=== PATIENT | female | born 1980 | race Caucasian/White ===

== ENCOUNTER 2018-05-21 13:01 | Emergency (ER) | payer OTHER, SELFPAY ==
[2018-05-21] MEDS: NORCO, ANEXSIA 5/325MG TABLET (HYDROcodone/ACETAMINOPHEN) PO (13:58)
[2018-05-21] MEDS: ONDANSETRON 4 MG ORAL DISINTEGRATING TAB (Q0162 PER 1MG) PO (13:58)
== END 2018-05-21 15:48 | disposition home or self-care (01) ==
LOC: M ED 13:01
DX: S06.0X0A Concussion without loss of consciousness, initial encounter (principal); S00.81XA Abrasion of other part of head, initial encounter; V86.55XA Driver of 3- or 4- wheeled all-terrain vehicle (ATV) injured in nontraffic accident, initial encounter; Y92.89 Other specified places as the place of occurrence of the external cause; Z88.8 Allergy status to other drugs, medicaments and biological substances; Z79.899 Other long term (current) drug therapy
CPT/HCPCS: Q0162

== ENCOUNTER → 2019-05-02 | Outpatient (REF) | payer OTHER ==
[~2019-05-02] MED LIST: ANTIDEPRESANT; NORC1TAB7 PO; ONDA4TAB6 PO
== END ==
LOC: M LAB REF 12:11
PROVIDERS: ATTEND Obstetrics & Gynecology
DX: Z34.82 Encounter for supervision of other normal pregnancy, second trimester (principal)

== ENCOUNTER → 2019-07-28 | Outpatient (CLI) | payer OTHER ==
[2019-07-28 13:31] LABS: HEMATOCRIT 29.6 % (36.0-47.0); MEAN CORPUSCULAR HEMOGLOBIN 30.8 pg (27.0-33.0); MEAN CORPUSCULAR HGB CONC 33.8 g/dl (32.0-36.5); MEAN CORPUSCULAR VOLUME 91.1 fl (80.0-96.0); PLATELET COUNT, AUTOMATED 269 10^3/uL (150-450); RED BLOOD COUNT 3.25 10^6/uL (4.00-5.40); WHITE BLOOD COUNT 11.1 10^3/uL (4.0-10.0)
== END ==
LOC: M LAB 11:28
PROVIDERS: ATTEND Obstetrics & Gynecology
DX: O34.82 Maternal care for other abnormalities of pelvic organs, second trimester (principal); Z3A.00 Weeks of gestation of pregnancy not specified
CPT/HCPCS: 82950; 85027; 86850; 86901; J2790

== ENCOUNTER → 2019-09-26 | Outpatient (REF) | payer OTHER | LOC: M LAB REF 12:23 | PROVIDERS: ATTEND Nurse Practitioner Women's Health | DX: Z34.83 Encounter for supervision of other normal pregnancy, third trimester (principal) ==

== ENCOUNTER → 2019-10-13 | Outpatient (REF) | payer OTHER | LOC: M LAB REF 12:11 | PROVIDERS: ATTEND Nurse Practitioner Family | DX: J02.9 Acute pharyngitis, unspecified (principal) ==

== ENCOUNTER 2019-10-17 04:19 | Inpatient (IN) | payer OTHER ==
[~2019-10-17] VITALS: Ht 154.9 cm; Wt 71.6 kg
[2019-10-17] VITALS (42 sets, daily range): BP systolic 96–137; BP diastolic 55–104
[2019-10-17] MEDS ORDERED: PRENTAB9 PO (05:11)
[2019-10-17] MEDS ORDERED: AMOX875T PO (05:11)
[2019-10-17] MEDS ORDERED: FOLITAB11 PO (05:11)
[2019-10-17] MEDS ORDERED: BUTORPHANOL 2 MG/ML INJ (J0595) As Ordered ONE (06:50)
[2019-10-17] MEDS ORDERED: PROMETHAZINE INJ 25 MG/ML VIAL (J2550) As Ordered ONE (06:52)
[2019-10-17] MEDS ORDERED: BUTORPHANOL 2 MG/ML INJ (J0595) IV ONE ×2 (07:00→09:00)
[2019-10-17] MEDS ORDERED: PROMETHAZINE INJ 25 MG/ML VIAL (J2550) IV PRN (07:00)
[2019-10-17 07:08] LABS: HEMATOCRIT 25.9 % (36.0-47.0); MEAN CORPUSCULAR HEMOGLOBIN 23.3 pg (27.0-33.0); MEAN CORPUSCULAR HGB CONC 30.9 g/dl (32.0-36.5); MEAN CORPUSCULAR VOLUME 75.3 fl (80.0-96.0); PLATELET COUNT, AUTOMATED 349 10^3/uL (150-450); RED BLOOD COUNT 3.44 10^6/uL (4.00-5.40)
[2019-10-17] MEDS ORDERED: OXYTOCIN DRIP 30 UNITS in IV 1 EA IV SCH (09:45)
--- NOTE | 2019-10-17 09:53 | HPE ---
DATE OF ADMISSION: 10/17/2019 REASON FOR ADMISSION: Spontaneous rupture of membranes. HISTORY OF PRESENT ILLNESS: This patient is a 39-year-old 3, para 2 who presented at 39 weeks 4 days estimated gestational age with complaints of leakage of fluid. She reported approximately 3:30 this morning a gush of fluid followed by some contractions. She denies any vaginal bleeding, reports active movement. Her course has been unremarkable. She receives her care at [facility]. She has been followed in her first trimester and has had appropriate appointments. PAST MEDICAL HISTORY: None. PAST SURGICAL HISTORY: None. PAST OBSTETRICAL HISTORY: She is 3, para 1. She has had one term delivery, vaginal, uncomplicated, proven to 8 pounds 15 ounces. MEDICATIONS: Her medications include amoxicillin for an ear infection. ALLERGIES: She has no known drug allergies.. SOCIAL HISTORY: She denies any alcohol, tobacco or drug use during . PHYSICAL EXAMINATION: Vital signs: Stable. She is afebrile. She has category one rate tracing with heart rate 130s. General appearance: Well appearing, no acute distress. Lungs: Clear to auscultation bilaterally. Cardiovascular: Heart regular rate and rhythm. Her abdomen is gravid, nontender. Estimated weight 3700 grams. Cervical Exam: She was 3 cm dilated, 80% effaced -2 station. LABS: Blood type is O negative, antibody screen is negative. Rubella is immune. RPR is nonreactive. Hepatitis surface antigen is negative. HIV is negative. Hepatitis C is nonreactive. She had a negative GBS. ASSESSMENT: 1. This patient is a 39-year-old 3, para 1 at 39 weeks 4 days estimated gestational age in active labor. 2. Reassuring status. PLAN: Admit to labor and delivery, CBC, RPR, type and screen. Patient requesting for IV pain medication. Anticipate spontaneous vaginal delivery.
[2019-10-17 10:01] LABS: HIV 1&2 SCREEN CENTAUR NEGATIVE (NEGATIVE)
[2019-10-17] MEDS ORDERED: FENTANYL 2MCG/ML ROPIVACAINE 0.2% IN 0.9% NACL 100ML IVBAG As Ordered ONE (10:16)
--- NOTE | 2019-10-17 11:27 | IPNPDOC ---
Text Note Date of Service The patient was seen on 10/17/19. NOTE Comfortable with epidural UC Q 2-4 minutes with coupling Pitocin @ 2mu FH 130, Cat I SVE 4/80/-1, anterior rim is slightly swollen. Fluid remains clear. Continue pitocin augmentation of labor VS,Fishbone, I+O VS, Fishbone, I+O Laboratory Tests 10/17/19 06:40 Vital Signs Date Time Temp Pulse Resp B/P (MAP) Pulse Ox O2 Delivery O2 Flow Rate FiO2 10/17/19 10:50 20 10/17/19 06:00 78 114/65 (81) 10/17/19 04:50 98.4 Yaritza Borden CNM Oct 17, 2019 11:27
[2019-10-17] MEDS ORDERED: EPIDURAL COMMENT XX SCH (11:45)
[2019-10-17] MEDS ORDERED: EPIDURAL/PCA KEYS XX PRN (11:45)
[2019-10-17] MEDS ORDERED: diphenhydrAMINE INJ 50MG/ML VIAL (J1200) IV PRN (11:45)
[2019-10-17] MEDS ORDERED: ePHEDrine SULFATE 25 MG/5 ML(5MG/ML) SYRINGE IV PRN (11:45)
[2019-10-17] MEDS ORDERED: REFRIGERATOR IV KEYS XX PRN (11:45)
[2019-10-17] MEDS ORDERED: ONDANSETRON 4MG/2ML VIAL (J2405) IV PRN (11:45)
[2019-10-17] MEDS ORDERED: LACTATED RINGER'S 1000 ML IV PRN (11:45)
[2019-10-17] MEDS: FENTANYL/ROPIVACAINE/NACL BAG 100 ML EPIDURAL SCH ×2 (11:45→17:41)
[2019-10-17] MEDS ORDERED: NALOXONE INJ 0.4 MG/1 ML VIAL (J2310) IV PRN (11:45)
[2019-10-17] MEDS ORDERED: CALCIUM CARBONATE 500 MG CHEW U/D PO PRN (13:00)
--- NOTE | 2019-10-17 14:45 | IPNPDOC ---
Text Note Date of Service The patient was seen on 10/17/19. NOTE Progress note Reports feeling Left back and pelvic pressure Pitocin @ 4mu FH 150, Minimal/moderate variability, sporadic variable decels UC Q minutes SVE 5-6/90/-1, anterior lip remains swollen. Bloody show and clear fluid noted. Rec peanut ball, reassess. Consider epidural bolus VS,Fishbone, I+O VS, Fishbone, I+O Laboratory Tests 10/17/19 06:40 Vital Signs Date Time Temp Pulse Resp B/P (MAP) Pulse Ox O2 Delivery O2 Flow Rate FiO2 10/17/19 11:59 93 105/59 (74) 10/17/19 11:10 20 10/17/19 11:10 96.3 Yaritza Borden CNM Oct 17, 2019 14:45
[2019-10-17] MEDS ORDERED: BICITRA 30ML SOLN UDC PO ONE (15:00)
[2019-10-17] MEDS: LR 1,000 ML IV SCH ×2 (15:33→17:01)
--- NOTE | 2019-10-17 17:04 | IPNPDOC ---
Text Note Date of Service The patient was seen on 10/17/19. NOTE Remains comfortable with epidural Mild tachycardia 160's - 170's, minimal variability. Maternal temp 100.2, output since epidural only 250ml, concentrated. UC 3-4 minutes x 60 seconds SVE 7-8/90/-1, fluid remains clear IV bolus, tylenol. Reassess VS,Fishbone, I+O VS, Fishbone, I+O Laboratory Tests 10/17/19 06:40 Vital Signs Date Time Temp Pulse Resp B/P (MAP) Pulse Ox O2 Delivery O2 Flow Rate FiO2 10/17/19 16:02 100.2 20 10/17/19 15:44 77 132/64 (86) Yaritza Borden CNM Oct 17, 2019 17:04
[2019-10-17] MEDS: ACETAMINOPHEN 500 MG TAB PO PRN ×2 (17:08→17:43)
[2019-10-17 17:34] LABS: HEMATOCRIT 28.5 % (36.0-47.0); HEMOGLOBIN 8.6 g/dl (12.0-15.5); MEAN CORPUSCULAR HEMOGLOBIN 23.5 pg (27.0-33.0); MEAN CORPUSCULAR HGB CONC 30.2 g/dl (32.0-36.5); MEAN CORPUSCULAR VOLUME 77.9 fl (80.0-96.0); PLATELET COUNT, AUTOMATED 373 10^3/uL (150-450); RED BLOOD COUNT 3.66 10^6/uL (4.00-5.40); WHITE BLOOD COUNT 20.6 10^3/uL (4.0-10.0)
[2019-10-17] MEDS ORDERED: AMPICILLIN SOD/SULBACTAM SOD 3 GM in D5W MINI-BAG PLUS 100 ML IV ONE (18:00)
[2019-10-17 20:54] LABS: CORD GAS ABE A -13.4; CORD GAS ABE V -8.5; CORD GAS HCO3 A 18.1 MEQ/L; CORD GAS HCO3 V 17.3 MEQ/L; CORD GAS O2 SAT V 74.6 %; CORD GAS PCO2 V 37.3 mmHg; CORD GAS PH A 7.07 UNITS; CORD GAS PH V 7.283 UNITS; CORD GAS PO2 A 49.4 mmHg; CORD GAS PO2 V 33.9 mmHg; CORD GAS SBC A 14.3 MEQ/L; CORD GAS SBC V 17.3 MEQ/L; CORD GAS TCO2 A 20.1 MEQ/L; CORD GAS TCO2 V 18.4 MEQ/L
[2019-10-17] MEDS ORDERED: DIBUCAINE 1% OINTMENT 30GM TOP PRN (21:00)
[2019-10-17] MEDS ORDERED: DOCUSATE SODIUM 100 MG CAP PO PRN (21:00)
[2019-10-17] MEDS ORDERED: IBUPROFEN 800 MG TAB PO PRN (21:00)
[2019-10-17] MEDS ORDERED: ACETAMINOPHEN 500 MG TAB PO PRN (21:00)
[2019-10-17] MEDS ORDERED: MOM 30ML SUSPENSION UDC PO PRN (21:00)
[2019-10-17] MEDS ORDERED: MEASLES,MUMPS,RUBELLA VACCINE INJ (MMR-II) (90707) SC SCH (21:00)
[2019-10-17] MEDS ORDERED: IBUPROFEN 600 MG TAB PO PRN (21:00)
[2019-10-17] MEDS ORDERED: ANUSOL HC CREAM 30GM TOP PRN (21:00)
[2019-10-17] MEDS ORDERED: METHYLERGONOVINE MALEATE 0.2 MG TAB PO PRN (21:00)
[2019-10-17] MEDS ORDERED: RHOGAM 300 MCG (1500 IU) INJ (J2790) IM SCH (21:00)
[2019-10-17] MEDS ORDERED: ACETAMINOPHEN TAB 650MG DOSE (2X325MG) PO PRN (21:00)
--- NOTE | 2019-10-17 21:01 | DNPDOC ---
[facility] Delivery Note Delivery Note DATE OF DELIVERY: 10/17/19 PREDELIVERY DIAGNOSIS: 39+3/7 weeks' gestation and labor. POST DELIVERY DIAGNOSIS: Delivered. Chorioamnionitis PROCEDURE: Spontaneous vaginal delivery. Provider: Yaritza Borden CNM ANESTHESIA: Epidural. ESTIMATED BLOOD LOSS: 400 mL. FINDINGS: 8 pound 3 ounce, 3680gm female infant, Score 7/9, nuchal cord times 1, reduced prior to delivery. DELIVERY SUMMARY: Patient is a 39-year-old 3 now para 2-0-1-2 who was admitted to labor and delivery for SROM clear fluid 0130. She received pitocin augmentation and utilized an epidural for labor coping. Diagnosed chorioamnionitis with maternal fever max 101.2, tachycardia to 170's and elevated WBC count. Treated with Unasyn 3gm x 1. NICU alerted. FD 1858. Viable female delivered ELLIOTT, restituted to ROP after reduction of loose nuchal cord @ 2008. Spontaneous respirations, transitioned on maternal abdomen. Cord doubly clamped; cut by FOB under my direction once pulsations ceased. Apgars 7/9. Cord gases obtained, results pending. Placenta chacko, intact with 3v cord @ 2020. Bilobed placenta with velamentous cord insertion between the lobes noted. Fundus firmed with massage and IV pitocin bolus. EBL 400ml. Cervix, vagina and perineum inspected. 1st degree perineal laceration repaired with 3-0 vicryl rapide. Sponge, sharp and instrument count correct at close of procedure. Parents are naming their daughter Chelsea. Yaritza Borden CNM Oct 17, 2019 21:01
[2019-10-18] VITALS: BP 110/59
[2019-10-18 05:58] VITALS: BP 114/63
[2019-10-18] MEDS: AMOXICILLIN 875 MG TAB PO SCH ×2 (09:12→21:05)
[2019-10-18] MEDS: PRENATAL VITAMINS CHEWABLE TABLET PO SCH (09:13)
[2019-10-18] MEDS ORDERED: ADACEL/BOOSTRIX VACCINE (DIPHTH/PERTUSS/ACELL/TETANUS)0.5ML SYR (90715) IM ONE (18:00)
[2019-10-18 18:04] VITALS: BP 127/74
[2019-10-19 06:00] VITALS: BP 129/73
[2019-10-19] MEDS: AMOXICILLIN 875 MG TAB PO SCH (09:00)
[2019-10-19] MEDS: PRENATAL VITAMINS CHEWABLE TABLET PO SCH (09:09)
== END 2019-10-19 12:05 | disposition home or self-care (01) | DRG 807 ==
LOC: M LDO 04:19 → M LDI 05:36 → M OBS 23:41
PROVIDERS: ADMIT Obstetrics & Gynecology; ATTEND Advanced Practice Midwife
PROC: 10E0XZZ Delivery of Products of Conception, External Approach (ICD-10-PCS; principal; 2019-10-17)
PROC: 0HQ9XZZ Repair Perineum Skin, External Approach (ICD-10-PCS; 2019-10-17)
DX: O41.1230 Chorioamnionitis, third trimester, not applicable or unspecified (principal); Z37.0 Single live birth; Z3A.39 39 weeks gestation of pregnancy; O69.81X0 Labor and delivery complicated by cord around neck, without compression, not applicable or unspecified; O70.0 First degree perineal laceration during delivery

== ENCOUNTER → 2021-05-10 | Outpatient (REF) | payer OTHER ==
[~2021-05-10] MED LIST changes: +AMOX875T PO; +FOLITAB11 PO; +PRENTAB9 PO
[2021-05-10 14:12] LABS: ALBUMIN 3.9 GM/DL (3.2-5.2); ALT/SGPT 41 U/L (12-78); BLOOD UREA NITROGEN 12 MG/DL (7-18); CALCIUM LEVEL 8.9 MG/DL (8.5-10.1); CARBON DIOXIDE LEVEL 27 MEQ/L (21-32); CHLORIDE LEVEL 109 MEQ/L (98-107); CHOLESTEROL LEVEL 152 MG/DL (<200); CHOLESTEROL RISK RATIO 2.714 (<5); CREATININE FOR GFR 0.62 MG/DL (0.55-1.30); GLOMERULAR FILTRATION RATE > 60.0 (>60); GLUCOSE, FASTING 95 MG/DL (70-100); HDL CHOLESTEROL 56 MG/DL (>40); LDL CHOLESTEROL 86 MG/DL (<100); NON-HDL-C 96 MG/DL; POTASSIUM SERUM 4.1 MEQ/L (3.5-5.1); SODIUM LEVEL 141 MEQ/L (136-145); TOTAL PROTEIN 7.3 GM/DL (6.4-8.2); TRIGLYCERIDES LEVEL 49 MG/DL (<150)
== END ==
LOC: M SFHCPLAZ 11:15
PROVIDERS: ATTEND Nurse Practitioner Adult Health
DX: Z00.00 Encounter for general adult medical examination without abnormal findings (principal); Z83.3 Family history of diabetes mellitus; Z13.29 Encounter for screening for other suspected endocrine disorder; Z13.220 Encounter for screening for lipoid disorders